=== PATIENT | male | born 1970 | race African-American/Black ===

== ENCOUNTER 2025-04-22 10:23 | Inpatient (IN) | payer OTHER ==
[2025-04-22 10:49] VITALS: BMI 24.7
[2025-04-22] MEDS ORDERED: ONDANSETRON *ODT* 4 MG TABLET SL PRN (10:54)
[2025-04-22] MEDS ORDERED: IBUPROFEN 400 MG TABLET (FP) PO PRN (10:54)
[2025-04-22] MEDS ORDERED: IBUPROFEN 600 MG TABLET (FP) PO PRN (10:54)
[2025-04-22] MEDS ORDERED: BENZOCAINE/MENTHOL (CHLORASEPTIC ) LOZENGE MM PRN (10:54)
[2025-04-22] MEDS ORDERED: guaiFENesin 600 MG TABLET.ER (FP) PO PRN (10:54)
[2025-04-22] MEDS ORDERED: NALOXONE (NARCAN) HCL 4 MG/0.1 ML SPRAY NS PRN (10:54)
[2025-04-22] MEDS ORDERED: BENZONATATE 200 MG CAPSULE PO PRN (10:54)
[2025-04-22] MEDS ORDERED: LOPERAMIDE HCL 2 MG CAPSULE PO PRN (10:54)
[2025-04-22] MEDS ORDERED: MAGNESIUM HYDROX 2400MG/30ML ORAL SUSPENSION 30 ML CUP PO PRN (10:54)
[2025-04-22] MEDS ORDERED: ACETAMINOPHEN 325 MG TABLET (FP) PO PRN (10:54)
[2025-04-22] MEDS ORDERED: POLYETHYLENE GLYCOL (HEALTHYLAX) 3350 17 GM PACKET PO PRN (10:54)
[2025-04-22] MEDS ORDERED: DICYCLOMINE HCL 10 MG CAPSULE PO PRN (10:54)
[2025-04-22] MEDS ORDERED: MAG HYDROX/AL HYDROX/SIMETH 30 ML UNIT-DOSE CUP PO PRN (10:54)
[2025-04-22] MEDS ORDERED: NICOTINE POLACRILEX 2 MG GUM BUC PRN (10:54)
[2025-04-22] MEDS ORDERED: BISMUTH SUBSALICYLATE 524 MG/30 ML PO PRN (10:54)
[2025-04-22] MEDS ORDERED: NICOTINE POLACRILEX 2 MG LOZENGE BC PRN (10:54)
[2025-04-22] MEDS: THIAMINE 100 MG TABLET PO SCH (22:24)
[2025-04-22] MEDS: MELATONIN 5 MG TABLETS PO SCH (22:24)
[2025-04-23 06:09] VITALS: RESP 16
[2025-04-23] MEDS: hydrOXYzine PAMOATE 25 MG CAPSULE (FP) PO PRN (07:32)
[2025-04-23] MEDS: METHOCARBAMOL 500 MG TABLET PO PRN (07:32)
[2025-04-23 08:45] VITALS: TEMP 97.5
[2025-04-23] MEDS: HYDROCHLOROTHIAZIDE 25 MG TABLET (FP) PO SCH (10:18)
[2025-04-23] MEDS: NALTREXONE HCL 50 MG TABLET PO ONE (10:19)
[2025-04-23] MEDS: PRENATAL VITAMINS W/ FOLIC ACID TABLET (FP) PO SCH (10:19)
[2025-04-23 12:26] VITALS: BP 138/91; PULSE 72
[2025-04-23 12:29] LABS: MCHC 32.8 g/dl (32.3-36.5); MEAN CELL VOLUME 92.4 fl (79.0-92.2); MEAN PLT VOLUME 9.6 fl (9.4-12.4); RDW 12.2 % (12.2-16.1)
[2025-04-23 12:54] LABS: GLUCOSE,RANDOM 79.0 mg/dL (74-106); TOT PROT 6.6 g/dl (6.4-8.2)
[2025-04-23 12:55] LABS: CO2 20.0 mmol/L (21-32)
[2025-04-23 12:57] LABS: ALK PHOS 72.0 U/L (40-150)
[2025-04-23 12:59] LABS: SGOT/AST 26.0 U/L (5-34); SGPT/ALT 18.0 U/L (0-55)
[2025-04-23 13:00] LABS: CREATININE 1.34 mg/dL (0.55-1.3)
[2025-04-24] MEDS ORDERED: NALTREXONE HCL 50 MG TABLET PO SCH (10:00)
== END 2025-04-23 14:11 | disposition home or self-care (01) | DRG 774 ==
LOC: YASAS 10:23 → Y3N 11:18
PROVIDERS: ADMIT Neuromusculoskeletal Medicine & OMM; ATTEND Allergy & Immunology
PROC: HZ2ZZZZ Detoxification Services for Substance Abuse Treatment (ICD-10-PCS; principal; 2025-04-22)
DX: F10.20 Alcohol dependence, uncomplicated (principal); F14.20 Cocaine dependence, uncomplicated; F12.20 Cannabis dependence, uncomplicated; F17.210 Nicotine dependence, cigarettes, uncomplicated
CPT/HCPCS: 36415; 80053; 80307; 85027; 86780; 86803; 93005; 93010